=== PATIENT | male | born 1960 | race African-American/Black ===

== ENCOUNTER 2016-09-25 19:31 | Emergency (ER) | payer OTHER ==
[~2016-09-25] VITALS: Ht 180.3 cm; Wt 102.3 kg
[~2016-09-25 19:31] MED LIST: HCTZ25 PO; PRO10 PO; SILD100T PO; ZAN150T PO
[2016-09-25 19:35] VITALS: BP 193/115; PULSE 79; RESP 26; O2SAT 97
--- NOTE | 2016-09-25 19:41 | ED.REPORT ---
HPI-General Illness Date of Service Sep 25, 2016 ED Provider: Black is 56-year-old male with a history of hypertension presenting with chief complaint of a left thumb laceration. Patient reports chopping kindling when he chopped the end of his left thumb. He is unsure when his last tetanus shot. Denies comorbidities such as diabetes, HIV, immunosuppressive drugs. He is right-handed Nursing Notes Stated Complaint: CHOPPED THUMB Chief Complaint: Extremity Trauma Nursing Notes Reviewed: Yes Allergies: Coded Allergies: Sulfa (Sulfonamide Antibiotics) (Verified Allergy, Intermediate, 09/25/16) Scheduled FLUoxetine-Expunged Drug, Do Not Renew! (FLUoxetine-Expunged Drug, Do Not Renew! ) 10 Mg Capsule 30 MG PO DAILY Hydrochlorothiazide-Expunged, Do Not Renew! (Hydrochlorothiazide-Expunged, Do Not Renew!) 25 Mg Tablet 25 MG PO AM Ranitidine 150 MG Tablet (Zantac 150 MG Tablet) 150 Mg Tab 150 MG PO HS Sildenafil Citrate-Expunged Drug, Do Not Jarrett (Viagra-Expunged Drug, Do Not Renew!) 100 Mg Tablet 100 MG PO PRN General Time Seen by MD: 19:40 Chief Complaint Laceration Past Medical History Past Medical History anxiety, erectile dysfunction Reports: Hypertension Past Surgical History none Reports: Tonsillectomy Family History n/a Smoking History Never Smoker Social History Alcohol Use: Denies alcohol use Drug Use: [employer] Occupation retired [employer] Review of Systems Negative unless stated otherwise in history of present illness Physical Exam General: Well appearing, well developed, well nourished, no acute distress. Left hand: Head: Atraumatic, normocephalic. Eyes: No scleral icterus or injection. No discharge. Vision grossly intact. ENT: Voice clear, hearing grossly intact. Respiratory: No respiratory distress, no increased work of breathing. Speaks in complete sentences. Skin: Warm and dry. Neurological: Grossly nonfocal. Psychological: alert and oriented. Speech appropriate, linear and logical. Behavior appropriate. Vital Signs Vital Signs Date Time Temp Pulse Resp B/P Pulse Ox O2 Delivery O2 Flow Rate FiO2 09/25/16 19:35 37.0 79 26 193/115 97 Room Air Initial VS: Vital signs abnormal (elevated blood pressure) Interpretation & Diagnostics X-Ray Interpretation Xray Interpretation: PROCEDURE: X-RAY FINGERS, TWO VIEWS INDICATIONS: left thumb laceration IMPRESSION: No fracture. No osseous lesion. If there are persistent symptoms or clinical suspicion for pathology, then repeat radiographs or advanced imaging (CT, MRI or bone scan) should be considered for further evaluation. Interpretation / Wet Read by: Interpret - RadiologistRadha Girma Procedures Digital Nerve Block Time: 19:47 Indication: Finger laceration repair Skin Preparation Agent: Other (alcohol swab) Digit Involved: Thumb left Digital Block Procedure: Four digital nerve block, Bupivacaine 0.5%, 5cc, 27g needle, Dorsal approach Post-Procedure / Complications: Condition improved, Tolerated procedure well , Patient stable Re-Eval/Medical Decision Med Decision/Clinical Course Otherwise healthy 56-year-old male presents after striking his left thumb with a hatchet. He is unsure of his tetanus status. Denies comorbidities such as diabetes, HIV, immunosuppression. Admits history of hypertension. 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 No bone is visible. Full strength and range of motion at MCP and PIP joint. Brisk capillary refill in the region around the injury. Radial pulse 2+. X-rays reveal no fracture. Discussed the case with Dr. Mac, who advises that antibiotics are not indicated, advises dressing with a bradycardic ointment, Xeroform gauze, which is performed. Patient is advised to follow up with primary care provider in 3 days for wound check or return to the emergency department. Nursing return precautions are provided. Tetanus booster and a prepack of hydrocodone/acetaminophen with precautions are provided. The patient verbalized understanding of and consented to plan. Patient's blood pressure is noted to be elevated at triage, but is significantly reduced at discharge. Advised to address this with his primary care provider. Discharge & Departure Primary Impression: Laceration Additional Impression: Elevated blood pressure reading Disposition: Home Discharge Condition All VS Reviewed: Yes Condition: Stable Additional Instructions: Evaluation for a thumb laceration in the emergency department consists of history, physical exam and x-rays all of which are reassuring that it is not broken. This laceration cannot be closed with sutures, but will quite well on its own. A dressing with antibiotic ointment and gauze. Please keep this wound covered up and drive for the next 3 days or so. See your primary care provider in 3 days to have the wound examined and redressed. If that is not possible you are welcome to return to the emergency department. I do not see an indication for antibiotics because this is a clean wound and you are otherwise healthy. We have updated your tetanus shot The pain is best treated with 600 mg of ibuprofen (Advil, Motrin) every 6 hours , I will give prescription for a small amount of hydrocodone/acetaminophen 5/325 mg. You can take 1-2 of these every 6 hours for pain not controlled by the ibuprofen. Do not take this medication with alcohol or acetaminophen (Tylenol) and do not operate a vehicle within 4 hours of taking this medication. Return to emergency prompt for any new or worsening symptoms including increasing redness, swelling, pain or discharge. Referrals: EITAN BACAWA SHELL (PCP) EDSupervising Provider for APC: Gabriella Mac MD copies to: [facility] Tuan Hou PA-C Sep 25, 2016 19:41
[2016-09-25] MEDS ORDERED: Bupivacaine-MPF 0.5% 30 mL Inj ONE (19:44)
[2016-09-25] MEDS ORDERED: Bupivacaine 0.5% 50 mL Inj INFILTRATE ONE (19:45)
[2016-09-25] MEDS ORDERED: TdaP Vaccine 0.5 mL Inj IM ONE (20:05)
--- NOTE | 2016-09-25 20:24 | DRSVH ---
PROCEDURE: X-RAY FINGERS, TWO VIEWS INDICATIONS: left thumb laceration TECHNIQUE: AP hand, 2 views of the left first finger(s) acquired. COMPARISON: None. FINDINGS: Bones: No fractures or dislocations. No suspicious bony lesions. Soft tissues: No suspicious soft tissue calcifications. IMPRESSION: No fracture. No osseous lesion. If there are persistent symptoms or clinical suspicion f or pathology, then repeat radiographs or advanced imaging (CT, MRI or bone scan) should be considered for further evaluation. Dictated by: Meera Menjivar MD, PhD on 09/25/2016 at 20:22 Approved by: Meera Menjivar MD, PhD on 09/25/2016 at 20:22
[2016-09-25] MEDS ORDERED: HYDR-4003 PO (20:41)
[2016-09-25] MEDS ORDERED: _HYDROcodone/APAP 5-325 mg Tablet PO PRN (20:45)
== END 2016-09-25 21:01 | disposition home or self-care (01) ==
LOC: SED 19:31
DX: S61.012A Laceration without foreign body of left thumb without damage to nail, initial encounter (principal); W27.0XXA Contact with workbench tool, initial encounter; Y92.9 Unspecified place or not applicable; Y93.89 Activity, other specified; Y99.8 Other external cause status; I10 Essential (primary) hypertension; F41.9 Anxiety disorder, unspecified; Z23 Encounter for immunization; Z88.2 Allergy status to sulfonamides